=== PATIENT | male | born 1970 | race Caucasian/White ===

== ENCOUNTER 2025-02-28 18:10 | Emergency (ER) | payer OTHER ==
[~2025-02-28] VITALS: Ht 175.3 cm; Wt 107.9 kg
[2025-02-28] MEDS ORDERED: METH4TAB81 PO (20:23)
--- NOTE | 2025-02-28 20:23 | Physician Documentation ---
History of Present Illness ~ Chief Complaint: Allergic Reaction Stated Complaint: ALLERGIC REACTION Time Seen by MD: 20:01 HPI Patient is seen today with complaints of allergic reaction possibly to some hot sauce he had on a breathe of earlier today. Patient states he also started a prescription of amoxicillin earlier today for treatment of an ear infection, however states he has tolerated both of these things very well in the past. Patient currently denies any shortness of breath or throat swelling or lip swelling. Patient states the swelling in his lip and throat that he felt earlier today has since resolved. Patient states he also did have significant pruritus of the palms and soles in his hands and feet. Patient has no other concern or complaint at this time. Medication Reconciliation Allergies: Coded Allergies: No Known Allergies (Unverified , 02/28/25) Review of Systems Constitutional: Denies: chills, fever, weakness Eyes: Denies: pain, blurred vision ENT: Denies: ear pain, nose pain, throat pain, mouth pain Respiratory: Denies: cough, shortness of breath Cardiovascular: Denies: chest pain, palpitations Gastrointestinal: Denies: abdominal pain, nausea, vomiting Genitourinary: Denies: burning, dysuria Male Genitalia: Denies: penile discharge, testicular pain Neurological: Denies: headache, dizziness Musculoskeletal: Denies: pain, swelling Integumentary: Denies: rash, lesions Allergic/Immunologic: Denies: hives, itching Hematologic/Lymphatic: Denies: no symptoms reported Psychiatric: Denies: depression, anxiety Physical Exam Vital Signs: Temperature: 98.4, Source: Oral, Heart Rate: 83, Respiratory Rate: 16, BP: 166/80, Pulse Oximetry: 97, Weight: 107.900 Oxygen Flow Rate: 0 Physical Exam General: Awake and Alert, no acute distress. HEENT: Conjunctiva pink, Sclera clear, Mucus Membranes moist. Neck: Supple without masses and tenderness. Resp: Unlabored. Lungs clear to auscultation bilaterally. Heart: Regular Rate and rhythm, normal S1 and S2 without murmur, rub or gallop. Abdomen: Soft and non tender no organomegaly Extremities: No cyanosis,clubbing or edema. Skin: Warm and Dry. Appreciated any erythematous skin rash or we will or flare or hives. Progress Results/Orders Results/Orders Vital Signs 02/28/25 18:11 Temp 98.4 Pulse 83 Resp 16 B/P (MAP) 166/80 Pulse Ox 97 O2 Flow Rate 0 Medical Decision Making Additional information obtaine: N/A Findings Patient is seen today with complaints of allergic reaction possibly to some hot sauce he had on a breathe of earlier today. Patient states he also started a prescription of amoxicillin earlier today for treatment of an ear infection, however states he has tolerated both of these things very well in the past. Patient currently denies any shortness of breath or throat swelling or lip swelling. Patient states the swelling in his lip and throat that he felt earlier today has since resolved. Patient states he also did have significant pruritus of the palms and soles in his hands and feet. Patient has no other concern or complaint at this time. Patient was given dose of Kenalog 40 mg IM in the ED today along with prednisone taper Medrol Dosepak sent to patient's pharmacy. Patient will continue the amoxicillin prescription at this time and will return to ED with any worsening, concerning or changing symptoms. Patient and I discussed the likely offending agent being the hot sauce. Differential Dx:Considerations: Include: Anaphylaxis, Angioedema, Shock, Urticaria Departure Disposition: HOME / SELF CARE / HOMELESS Impression: Primary Impression: Acute allergic reaction Qualified Codes: T78.40XA - Allergy, unspecified, initial encounter Condition: Stable Discharge Instructions: Hives, [id number] Additional Instructions: Patient was given dose of Kenalog 40 mg IM in the ED today along with prednisone taper Medrol Dosepak sent to patient's pharmacy. Patient will continue the amoxicillin prescription at this time and will return to ED with any worsening, concerning or changing symptoms. Patient and I discussed the likely offending agent being the hot sauce. Referrals: NO PRIMARY CARE PROVIDER (PCP) Prescriptions Methylprednisolone (Medrol Dosepak) 4 Mg Tab.ds.pk 0 PO UD, #21 TAB 0 Refills take 6 Pills Day 1, 5 Pills Day 2, 4 Pills Day 3, 3 Pills Day 4, 2 Pills Day 5 and 1 pill Day 6 Prov: KEYSHAWN LEVINE 02/28/25 Signature Scribe Signature: No scribe Attestation: No scribe KEYSHAWN LEVINE Feb 28, 2025 20:23
[2025-02-28] MEDS: triamcinolone acetonide 40mg/ml inj IM ONE (20:33)
[2025-02-28 20:40] VITALS: BP 160/78; PULSE 80; RESP 18; TEMP 98.6; O2SAT 99
== END 2025-02-28 20:46 | disposition home or self-care (01) ==
LOC: ER 18:11
DX: T78.49XA Other allergy, initial encounter (principal); X58.XXXA Exposure to other specified factors, initial encounter
CPT/HCPCS: 96372; 99283; J3301